=== PATIENT | male | born 1965 | race Caucasian/White ===

== ENCOUNTER 2018-02-27 10:26 | Emergency (ER) | payer BC ==
[~2018-02-27] VITALS: Ht 188 cm; Wt 127.0 kg
[2018-02-27] MEDS ORDERED: Lotensin40 MG PO (10:38)
[2018-02-27] MEDS ORDERED: Bactrim Ds Tab1 EACH PO (12:00)
[2018-02-27] MEDS ORDERED: CEPH500 PO (12:00)
== END 2018-02-27 12:05 | disposition home or self-care (01) ==
LOC: ER 10:26
DX: L03.313 Cellulitis of chest wall (principal); Z79.899 Other long term (current) drug therapy; Z87.891 Personal history of nicotine dependence
CPT/HCPCS: 99283

== ENCOUNTER 2018-03-02 06:59 | Emergency (ER) | payer BC ==
[~2018-03-02] VITALS: Ht 188 cm; Wt 127.0 kg
[~2018-03-02 06:59] MED LIST: Bactrim Ds Tab1 EACH PO; CEPH500 PO; Lotensin40 MG PO
== END 2018-03-02 08:15 | disposition home or self-care (01) ==
LOC: ER 06:59
DX: N61.0 Mastitis without abscess (principal); Z79.899 Other long term (current) drug therapy; Z79.2 Long term (current) use of antibiotics
CPT/HCPCS: 99282